=== PATIENT | male | born 1985 | race African-American/Black ===

== ENCOUNTER 2024-06-15 08:06 | Emergency (ER) | payer OTHER ==
[~2024-06-15] VITALS: Ht 165.1 cm; Wt 85.7 kg
[2024-06-15] MEDS: AMPICILLIN SOD/SULBACTAM SOD 3 GM in DEXTROSE 5% (D5W) MINI-BAG PLU 100 ML IV ONE (13:22)
[2024-06-15] MEDS ORDERED: ISOVUE-370 76% 100ML VIAL As Ordered ONE (13:26)
[2024-06-15 13:28] LABS: BASO % 0.5 % (0.0-1.0); EOS # 0.2 10^3/uL (0.0-0.5); EOS % 3.3 % (0.0-3.0); HEMATOCRIT 44.8 % (42.0-52.0); HEMOGLOBIN 14.2 g/dl (13.5-17.5); LYMPH # 2.4 10^3/uL (1.5-5.0); LYMPH % 37.5 % (24.0-44.0); MEAN CORPUSCULAR HEMOGLOBIN 26.9 pg (27.0-33.0); MEAN CORPUSCULAR HGB CONC 31.7 g/dl (32.0-36.5); MONO # 0.5 10^3/uL (0.0-0.8); MONO % 7.9 % (2.0-8.0); NEUTROPHILS # 3.2 10^3/uL (1.5-8.5); NEUTROPHILS % 50.6 % (36.0-66.0); PLATELET COUNT, AUTOMATED 267 10^3/uL (150-450); RED BLOOD COUNT 5.27 10^6/uL (4.30-6.10); WHITE BLOOD COUNT 6.3 10^3/uL (4.0-10.0)
[2024-06-15 14:03] VITALS: BP 125/78; TEMP 97.6; O2SAT 97
[2024-06-15] MEDS ORDERED: AMOX875T2 PO (14:20)
[2024-06-15] MEDS ORDERED: DEXA6TAB PO (14:20)
== END 2024-06-15 14:43 | disposition home or self-care (01) ==
LOC: M ED 08:06
DX: J02.9 Acute pharyngitis, unspecified (principal); K21.9 Gastro-esophageal reflux disease without esophagitis; Z79.2 Long term (current) use of antibiotics; Z79.899 Other long term (current) drug therapy
CPT/HCPCS: 70491; 80047; 85025; 86140; 87486; 87581; 87633; 87798; 96365; 96375; 99284; J0295; J1100; Q9967